=== PATIENT | female | born 1990 | race Two or more races ===

== ENCOUNTER 2016-10-05 20:44 | Emergency (ER) | payer OTHER ==
[2016-10-05 22:50] LABS: microscopic required? NO
[2016-10-05 22:50] LABS: BASOPHIL % 0.6 % (0-2); PLATELET COUNT 290 x10^3mcL (130-400); RED CELL DISTRIBUTION WIDTH 12.3 % (11.5-14.5)
[2016-10-05 22:58] LABS: CALCIUM 9.5 mg/dL (8.5-10.1); CARBON DIOXIDE 28.9 mmol/L (21-32); CHLORIDE SERUM 104 mmol/L (98-107); CREATININE SERUM 0.8 mg/dL (0.6-1.0); GFR1 > 60 mL/min; GLUCOSE SERUM 127 mg/dL (74-106); POTASSIUM SERUM 4.4 mmol/L (3.5-5.1); SODIUM SERUM 142 mmol/L (136-145)
[2016-10-05 23:02] LABS: ALBUMIN 4.1 g/dL (3.4-5.0); ALKALINE PHOSPHATASE 67 U/L (46-116); ALT/SGPT 39 U/L (14-59); AMYLASE 63 U/L (25-115); AST/SGOT 27 U/L (15-37); BILIRUBIN TOTAL 0.25 mg/dL (0.20-1.00); LIPASE 136 IU/L (73-393); TOTAL PROTEIN, SERUM 8.5 g/dL (6.4-8.2)
[2016-10-05 23:09] LABS: urine erythrocyte NEGATIVE (NEGATIVE)
[2016-10-05 23:57] VITALS: BP 138/91
== END 2016-10-05 23:57 | disposition home or self-care (01) ==
LOC: ED 20:44
PROVIDERS: Emergency Medicine
DX: R10.33 Periumbilical pain (principal)
CPT/HCPCS: J3010; Q0162